=== PATIENT | male | born 1960 | race Native Hawaiian/Other Pacific Islander ===

== ENCOUNTER 2016-11-10 10:41 | Emergency (ER) | payer OTHER, BC ==
[2016-11-10 10:43] VITALS: BMI 26.3
[2016-11-10 10:44] VITALS: BP 148/102; PULSE 80; RESP 19; TEMP 98.9; O2SAT 97
[2016-11-10] MEDS ORDERED: Lidocaine 1% Inj (20ml) IJ ONE (10:57)
[2016-11-10] MEDS ORDERED: TDAP Vaccine 0.5 mL Syr IM ONE (10:57)
[2016-11-10] MEDS ORDERED: Lidocaine 1% Inj (20ml) ONE (11:02)
--- NOTE | 2016-11-10 11:31 | ED PDOC ---
HPI: General Adult Time Seen by Provider: 11/10/16 10:48 Chief Complaint (Nursing): Upper Extremity Problem/Injury Chief Complaint (Provider): right middle finger pain History Per: Patient History/Exam Limitations: no limitations Additional Complaint(s): 56yo male comes to the ED complaining of right middle finger pain. States a train door closed on the right middle finger while at work earlier today causing a laceration. Denies numbness, tingling, foreign body sensation Past Medical History Reviewed: Historical Data, Nursing Documentation, Vital Signs Vital Signs: Last Vital Signs Temp 98.9 F 11/10/16 10:43 Pulse 80 11/10/16 10:43 Resp 19 11/10/16 10:43 BP 148/102 H 11/10/16 10:43 Pulse Ox 97 11/10/16 11:31 - Medical History PMH: No Chronic Diseases - Surgical History Surgical History: No Surg Hx - Family History Family History: States: Unknown Family Hx - Allergies Allergies/Adverse Reactions: Allergies Allergy/AdvReac Type Severity Reaction Status Date / Time No Known Allergies Allergy Verified 11/10/16 10:48 Review of Systems ROS Statement: Except As Marked, All Systems Reviewed And Found Negative Musculoskeletal: Positive for: Other (finger pain) Skin: Positive for: Other (laceration) Physical Exam - Reviewed Nursing Documentation Reviewed: Yes Vital Signs Reviewed: Yes - Physical Exam Appears: Positive for: Well, Non-toxic, No Acute Distress Head Exam: Positive for: ATRAUMATIC, NORMAL INSPECTION, NORMOCEPHALIC Skin: Positive for: Warm, Dry Extremity: Positive for: Other (1cm jagged laceration on the volar surface of distal phallanx of right 3rd digit. full ROM actively of finger. no active bleeding) - ECG O2 Sat by Pulse Oximetry: 97 (RA) Pulse Ox Interpretation: Normal Procedures - Time-Out Type of Procedure: Laceration repair Site of Procedure: R middle finger Correct Patient (with visual ID + MR# on ID Band): Yes Correct Procedure: Yes Correct Site Marked: Yes X-Ray Marked: Yes PA/Tech: [place] - Chest Tube Anesthesia: 1% Lidocaine - Laceration/Wound Repair Laceration repair Wound Length (cm): 1 Wound's Depth, Shape: superficial, irregular Wound Explored: clean Irrigated w/ Saline (ccs): 300 Betadine Prep?: Yes Anesthesia: 1% Lidocaine Wound Debrided: minimal Wound Repaired With: Sutures Suture Size/Type: 5:0, proline Number of Sutures: 6 Layer Closure?: Yes Wound Complexity: Simple Disposition - Clinical Impression Clinical Impression: Finger laceration - Patient ED Disposition Is Patient to be Admitted: No - Disposition Disposition: Routine/Home Disposition Time: 13:59 Condition: STABLE Additional Instructions: Suture removal in 7-10 days. Instructions: Care For Your Stitches (ED) Forms: [facility] School/Work Excuse Print Language: OCCITAN Additional Comments - Additional Comments Additional Comments: Scribe Attestation: Documented by Janes Durant acting as a scribe for Berto Houston PA-C. Provider Scribe Attestation: All medical record entries made by the Scribe were at my direction and personally dictated by me. I have reviewed the chart and agree that the record accurately reflects my personal performance of the history, physical exam, medical decision making, and the department course for this patient. I have also personally directed, reviewed, and agree with the discharge instructions and disposition.
[2016-11-10] MEDS ORDERED: Povidone Iodine Topical 10% Sol ONE (13:25)
--- NOTE | 2016-11-10 14:13 | RAD ---
PROCEDURE: Right Hand Radiographs. HISTORY: trauma COMPARISON: None. FINDINGS: BONES: No acute fracture. JOINTS: Contracture deformity 5th digit. Etiology, acuity/ chronicity unknown. Mild osteoarthritic changes. SOFT TISSUES: Normal. OTHER FINDINGS: None. IMPRESSION: No acute findings related to/accounting for the clinical presentation. Age indeterminate contracture deformity digit. No associated subluxation, dislocation fracture.
== END 2016-11-10 14:19 | disposition home or self-care (01) ==
LOC: H.ER 10:41
DX: S61.202A Unspecified open wound of right middle finger without damage to nail, initial encounter (principal); W22.8XXA Striking against or struck by other objects, initial encounter; Y99.0 Civilian activity done for income or pay

== ENCOUNTER 2016-11-19 09:25 | Emergency (ER) | payer OTHER, BC ==
[2016-11-19 09:31] VITALS: BP 134/84; PULSE 72; RESP 18; TEMP 97.6; O2SAT 100; BMI 28.1
--- NOTE | 2016-11-19 09:49 | ED PDOC ---
HPI: General Adult Time Seen by Provider: 11/19/16 09:30 Chief Complaint (Nursing): Suture/Staple Removal Chief Complaint (Provider): suture removal History Per: Patient History/Exam Limitations: no limitations Additional Complaint(s): 56yo male returns to the ED for removal of 6x sutures from right middle finger. Patient was seen here 9 days ago after a train door closed on the right middle finger causing laceration. States he has been following wound care instructions. Reports wound is healing well. Denies any medical complaints. Denies warmth, redness, discharge from wound site. Past Medical History Reviewed: Historical Data, Nursing Documentation, Vital Signs Vital Signs: Last Vital Signs Temp 97.6 F 11/19/16 09:30 Pulse 72 11/19/16 09:30 Resp 18 11/19/16 09:30 BP 134/84 11/19/16 09:30 Pulse Ox 100 11/19/16 09:54 - Medical History PMH: No Chronic Diseases - Surgical History Surgical History: No Surg Hx - Family History Family History: States: Unknown Family Hx - Allergies Allergies/Adverse Reactions: Allergies Allergy/AdvReac Type Severity Reaction Status Date / Time No Known Allergies Allergy Verified 11/10/16 10:48 Review of Systems Constitutional: Negative for: Fever Musculoskeletal: Negative for: Hand Pain Physical Exam - Reviewed Nursing Documentation Reviewed: Yes Vital Signs Reviewed: Yes - Physical Exam Appears: Positive for: Well, Non-toxic, No Acute Distress Head Exam: Positive for: ATRAUMATIC, NORMAL INSPECTION, NORMOCEPHALIC Skin: Positive for: Warm, Dry Respiratory: Negative for: Respiratory Distress Extremity: Positive for: Other (Volar surface distal phallanx right 3rd digit: 1cm laceration healing well, 6x sutures in place. No erythema, discharge, warmth , swelling. Normal ROM.) - ECG O2 Sat by Pulse Oximetry: 100 Medical Decision Making Medical Decision Makin: 6x sutures removed by literary writer. Wound care instructions given. Stable for discharge. Disposition - Clinical Impression Clinical Impression: Removal of suture - Disposition Disposition: Routine/Home Disposition Time: 09:50 Condition: STABLE Additional Instructions: Followup with your doctor and with employee health for future care. Instructions: Stitches Removal (ED) Additional Comments - Additional Comments Additional Comments: Scribe Attestation: Documented by Janes Durant acting as a scribe for Johanna Young MD. Provider Scribe Attestation: All medical record entries made by the Scribe were at my direction and personally dictated by me. I have reviewed the chart and agree that the record accurately reflects my personal performance of the history, physical exam, medical decision making, and the department course for this patient. I have also personally directed, reviewed, and agree with the discharge instructions and disposition.
== END 2016-11-19 10:10 | disposition home or self-care (01) ==
LOC: H.ER 09:25
DX: Z48.02 Encounter for removal of sutures (principal)

== ENCOUNTER 2018-08-07 23:06 | Emergency (ER) | payer OTHER, BC ==
[2018-08-07 23:06] VITALS: BMI 28.1
[2018-08-07 23:16] VITALS: TEMP 97.4; O2SAT 99
--- NOTE | 2018-08-07 23:50 | ED PDOC ---
Upper Extremity Pain/Injury Time Seen by Provider: 08/07/18 23:27 Chief Complaint (Nursing): Finger,Hand,&Wrist Chief Complaint (Provider): thumb pain Additional Complaint(s): 58 y/o M with HL who presents with Right thumb pain after having train door slam on it. 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 He had acute pain and swelling. Denies numbness or tingling. Pt states that his tetanus is up to date. Past Medical History Vital Signs: Last Vital Signs Temp 97.4 F L 08/07/18 23:14 Pulse 78 08/07/18 23:14 Resp 18 08/07/18 23:14 BP 151/85 H 08/07/18 23:14 Pulse Ox 99 08/07/18 23:14 - Medical History PMH: Hyperlipidemia - Family History Family History: States: Unknown Family Hx - Home Medications Home Medications: Ambulatory Orders Medication Instructions Recorded RX: Ibuprofen [Motrin Tab] 600 mg PO Q6H PRN 7 Days tab 08/08/18 - Allergies Allergies/Adverse Reactions: Allergies Allergy/AdvReac Type Severity Reaction Status Date / Time No Known Allergies Allergy Verified 08/07/18 23:14 Physical Exam - Reviewed Nursing Documentation Reviewed: Yes Vital Signs Reviewed: Yes - Physical Exam Appears: Positive for: Well Extremity: Positive for: Normal ROM (with flexion and extension of Right thumb IP, MCP and wrist. ), Tenderness (on palpation of Right thumb IP), Capillary Refill (< 1 sec), Swelling, Other (approximately 0.5cm avulsion on IP of Right thumb with minimal bleeding, + edema and ecchymosis on palmar and dorsal aspect of thumb. ). Negative for: Deformity Neurologic/Psych: Positive for: Alert, Oriented - ECG O2 Sat by Pulse Oximetry: 99 Medical Decision Making Medical Decision Making: Right thumb X-ray Ice to thumb Patient declining pain meds. Right thumb wound cleansed with saline and dressed with Bacitracin and non- adherent dressing. Right thumb x-ray read by me: no fracture or dislocation noted. Disposition - Clinical Impression Clinical Impression: Injury of thumb, right - Patient ED Disposition Is Patient to be Admitted: No Counseled Patient/Family Regarding: Diagnosis, Need For Followup - Disposition Disposition: Routine/Home Disposition Time: 00:20 Condition: STABLE Additional Instructions: Take Ibuprofen or Tylenol for pain. Continue to ice it as needed for the next couple of hours. Return to ER if pain worsens or if you develop fevers Prescriptions: RX: Ibuprofen [Motrin Tab] 600 mg PO Q6H PRN 7 Days tab PRN Reason: Pain, Moderate (4-7) Forms: [facility] (Welsh) Print Language: NICARAGUAN
[2018-08-08 00:25] VITALS: BP 114/60; PULSE 71; RESP 19
--- NOTE | 2018-08-08 09:40 | RAD ---
Date of service: 08/07/2018 PROCEDURE: Right Thumb radiographs. HISTORY: door slammed on thumb, + ecchymosis COMPARISON: None. TECHNIQUE: AP radiograph of the right hand, as well as spot oblique and lateral images of thumb were obtained. FINDINGS: RIGHT THUMB: Normal right thumb, without fracture or focal lesion. Remainder of the right hand (as seen on the AP view) grossly unremarkable. JOINTS: Normal. SOFT TISSUES: Normal. OTHER FINDINGS: None. IMPRESSION: Normal right thumb radiographs.
== END 2018-08-08 00:25 | disposition home or self-care (01) ==
LOC: H.ER 23:06
DX: S67.01XA Crushing injury of right thumb, initial encounter (principal); W23.0XXA Caught, crushed, jammed, or pinched between moving objects, initial encounter; Y99.0 Civilian activity done for income or pay